=== PATIENT | male | born 1970 | race Caucasian/White ===

== ENCOUNTER 2016-06-25 10:30 | Observation (INO) | payer MEDICAID ==
[2016-07-02 13:09] LABS: ANION GAP 11 mEq/L (8-16); CALCIUM 9.5 mg/dL (8.5-10.4); CARBON DIOXIDE 25 mEq/l (22-31); CHLORIDE 103 mEq/L (97-110); CREATININE 0.6 mg/dL (0.7-1.3); GLOMERULAR FILTRATION RATE > 60; GLUCOSE 108 mg/dL (70-100); POTASSIUM 4.5 mEq/L (3.5-5.2); SODIUM 139 mEq/L (134-144)
[2016-07-02] MEDS ORDERED: BUPIVACAINE/EPI 0.5% 30 ML SDV ONE (15:13)
[2016-07-02] MEDS ORDERED: PROPOFOL/EMULSION 500 MG/50 ML BOTTLE IV ONE (15:20)
[2016-07-02] MEDS ORDERED: fentaNYL 250 MCG/5 ML INJ ONE (15:20)
[2016-07-02] MEDS ORDERED: ROCURONIUM 50 MG/5 ML VIAL ONE ×2 (15:22→16:18)
[2016-07-02] MEDS ORDERED: MIDAZOLAM 2 MG/2 ML VIAL ONE (15:24)
[2016-07-02] MEDS ORDERED: LIDOCAINE 1% 30 ML SDV ONE (16:01)
[2016-07-02] MEDS ORDERED: DEXAMETHASONE 4 MG/ML VIAL ONE (16:18)
[2016-07-02] MEDS ORDERED: KETOROLAC 30 MG/1 ML SDV ONE (16:18)
[2016-07-02] MEDS ORDERED: ONDANSETRON 4 MG/2 ML VIAL ONE (16:18)
[2016-07-02] MEDS ORDERED: SUGAMMADEX SODIUM 200 MG/2 ML VIAL IVP ONE (16:18)
[2016-07-02] MEDS ORDERED: TEMAZEPAM 15 MG CAP PO PRN (16:33)
[2016-07-02] MEDS ORDERED: ONDANSETRON 4 MG/2 ML VIAL IVP PRN (16:33)
--- NOTE | 2016-07-02 16:38 | POSTOPPROG ---
Post Op Note Date of Operation: 07/02/16 Surgeon: Parish Wynn [place] Dust Sprayer: none Anesthesiologist: Essie Anesthesia: GET(General Endotracheal) Pre-op Diagnosis: pilonidal cyst Post-op Diagnosis: same Procedure: pilonidal cystectomy Findings: 3 sinues no abscess Inf/Abcess present in the surg proc area at time of surgery?: Yes Depth: Superfical (Skin SQ) EBL: Minimal Specimen(s): cyst
[2016-07-02] MEDS ORDERED: NS 1,000 ML IV SCH (16:45)
[2016-07-02] MEDS ORDERED: fentaNYL 100 MCG/2 ML INJ ONE (17:34)
--- NOTE | 2016-07-02 17:55 | GOP ---
[f rep st] OPERATIVE REPORT DATE OF OPERATION: SURGEON: Parish Wynn MD ANESTHESIA: General endotracheal anesthesia. ANESTHESIOLOGIST: Aubrey Meyer MD PREOPERATIVE DIAGNOSIS: A 45-year-old gentleman who presents with pilonidal cyst, chronic sinus wit hout sepsis. POSTOPERATIVE DIAGNOSIS: A 45-year-old gentleman who presents with pilonidal cyst, chronic sinus wi thout sepsis. PROCEDURE PERFORMED: Pilonidal cystectomy. FINDINGS: SPECIMENS: Pilonidal cyst to permanent pathology. ESTIMATED BLOOD LOSS: Less than 10 mL. INDICATIONS: A 45-year-old gentleman who presents with pilonidal cyst, chronic sinus without sepsis . DESCRIPTION OF PROCEDURE: The patient was brought into the operating room. After induction of endo tracheal anesthesia in supine position, he was placed in a prone hay-knife position. The buttocks were spread and taped with some tape to allow exposure of the gluteal cleft. It was prepped with ch lorhexidine. Time-out procedure was then performed according to institutional standards. Local ane sthetic 1% Xylocaine with 0.5% Marcaine with epinephrine were infused in the skin and subcutaneous t issue. An elliptical incision was made, including the 3 sinuses in the midline and a previously leela in draining area on the left gluteus. The elliptical incision was used to remove the entire cyst, w hich was passed off as a specimen. Electrocautery was used to get all the way down to the sacrum. Flaps were created laterally to the left and laterally to the right to allow reapproximation to the midline. The underlying tissue was closed in layers using 2-0 Polysorb and 3-0 Polysorb and then a final 2-0 nylon suture. Dressing was applied. The patient was placed supine. Needle, instrument, and sponge counts were verified to be correct x2. He was taken to the recovery room in stable condi tion. No immediate complications. COMPLICATIONS: There were no complications. /[id number]/MODL
[2016-07-02] MEDS ORDERED: HYDROmorphONE/DILAUDID 1 MG/ML SYR ONE (18:06)
[2016-07-02] MEDS: NICOTINE 14 MG/24 HR PATCH TD SCH (18:39)
[2016-07-02] MEDS: OXYCODONE/APAP 5/325 TAB PO PRN (22:09)
[2016-07-03] MEDS: OXYCODONE/APAP 5/325 TAB PO PRN ×2 (03:32→07:32)
[2016-07-03 07:20] VITALS: BP 113/78; PULSE 86; RESP 16; TEMP 97.7; O2SAT 93
[2016-07-03] MEDS: NICOTINE 14 MG/24 HR PATCH TD SCH (07:32)
[2016-07-03] MEDS ORDERED: METHADONE HCL 1 MG/ML 500ML BULK BOTTLE PO SCH (09:00)
--- NOTE | 2016-07-03 10:10 | SOAPPROG ---
SOAP Progress Note Assessment/Plan: Assessment: POD 1 s/p pilonidal cystectomy. Good night overall. Pain reasonably controlled. Patient ambulating around room- eager to go home. afeb, VSS. Sutures in place. Plan: d/c home today- follow up in [address] Wynn discussed pain management with Dr. Berrios (patien't methadone clinic physician). Will provide Oxycodone for additional pain control at discharge and patient to follow up with Dr. Berrios tomorrow. Patient to follow up with [facility] as scheduled in 1-2 weeks for follow up on diabetes. Reviewed with patient and nurse. Discussed case with Dr. Wynn. Plan: 07/03/16 10:07 Objective: Vital Signs Temp Pulse Resp BP Pulse Ox 36.5 C 86 16 113/78 93 07/03/16 07:18 07/03/16 07:18 07/03/16 07:18 07/03/16 07:18 07/03/16 07:18 Laboratory Results 07/02/16 12:31 07/02/16 07/03/16 07/04/16 05:59 05:59 05:59 Intake Total 1920 240 Output Total 470 Balance 1450 240 ICD10 Worksheet Patient Problems: Problems Problem Status Onset Pilonidal cyst with abscess Acute
== END 2016-07-03 10:45 | disposition home or self-care (01) ==
LOC: F3E 07-02 11:36
PROVIDERS: ADMIT Surgery; ATTEND Surgery
PROC: 0HB8XZZ Excision of Buttock Skin, External Approach (ICD-10-PCS; principal; 2016-07-02 13:30)
DX: L05.91 Pilonidal cyst without abscess (principal); E03.9 Hypothyroidism, unspecified; B19.20 Unspecified viral hepatitis C without hepatic coma; R20.2 Paresthesia of skin; G89.29 Other chronic pain; F11.21 Opioid dependence, in remission; E11.40 Type 2 diabetes mellitus with diabetic neuropathy, unspecified; F17.200 Nicotine dependence, unspecified, uncomplicated; Z79.899 Other long term (current) drug therapy
CPT/HCPCS: 11770; G0378; J1100; J1170; J1885; J2250; J2405; J2704; J3010

== ENCOUNTER → 2016-10-30 | Outpatient (CLI) | payer MEDICAID | LOC: FIMAGING 12:11 | PROVIDERS: ATTEND Psychiatry & Neurology Neurology | DX: R94.02 Abnormal brain scan (principal); E11.40 Type 2 diabetes mellitus with diabetic neuropathy, unspecified; R20.2 Paresthesia of skin ==

== ENCOUNTER → 2017-04-01 | Outpatient (CLI) | payer MEDICAID | LOC: FIMAGING 09:26 | PROVIDERS: ATTEND Internal Medicine | DX: B18.2 Chronic viral hepatitis C (principal); R16.0 Hepatomegaly, not elsewhere classified; Z90.49 Acquired absence of other specified parts of digestive tract ==